=== PATIENT | male | born 1980 | race Hispanic/Latino ===

== ENCOUNTER 2017-10-23 23:30 | Emergency (ER) | payer SELFPAY ==
[2017-10-24 00:10] LABS: #Basophils 0.1 thou/uL (0.0-0.2); #Eosinphils 0.2 thou/uL (0.0-0.7); #Lymphocytes 3.1 thou/uL (1.20-3.40); #Monocytes 0.6 thou/uL (0.11-0.59); #Neutrophils 5.5 thou/uL (1.40-6.50); %Basophils 0.6 % (0.0-1.0); %Eosinophils 2.2 % (0.0-10.0); %Lymphocytes 32.3 % (21.0-51.0); %Monocytes 6.7 % (0.0-10.0); %Neutrophils 58.2 % (42.0-75.0); Mean Corpuscular HGB CONC 35.8 g/dL (32.0-36.0); Mean Corpuscular Hemoglobin 30.7 pg (27.0-31.0); Mean Corpuscular Volume 85.7 fL (78.0-98.0); Mean Platelet Volume 7.7 fL (7.4-10.4); Platelet Count 271 thou/uL (130-400); RBC Distribution Width 11.9 % (11.5-14.5); Red Blood Cell (RBC) Count 4.57 mill/uL (4.70-6.10); White Blood Cell (WBC) Count 9.4 thou/uL (4.8-10.8)
[2017-10-24 00:28] LABS: Anion Gap 11 mmol/L (10-20); BUN (Urea Nitrogen) 18 mg/dL (8.9-20.6); Calc. Creatinine Clearance 0 mL/min (70-130); Calcium 9.4 mg/dL (7.8-10.44); Carbon Dioxide 25 mmol/L (22-29); Chloride 102 mmol/L (98-107); Estimated GFR-MDRD 59; Glucose 215 mg/dL (70-105); Potassium 3.3 mmol/L (3.5-5.1); Sodium 135 mmol/L (136-145)
[2017-10-24 00:41] LABS: CKMB 1.2 ng/mL (0-6.6); Troponin I Less than 0.010 ng/mL (< 0.028)
[2017-10-24] MEDS ORDERED: Hydrochlorothiazide 25 MG TAB PO SCH (01:30)
--- NOTE | 2017-10-26 15:50 | EKG ---
Test Reason : LAMONTE B/P Blood Pressure : / mmHG Vent. Rate : 087 BPM Atrial Rate : 087 BPM P-R Int : 172 ms QRS Dur : 088 ms QT Int : 378 ms P-R-T Axes : 027 004 032 degrees QTc Int : 454 ms Normal sinus rhythm Possible Left atrial enlargement Nonspecific T wave abnormality Abnormal ECG No ST changes No T wave inversions Confirmed by GARRETT SHAY, JENNIFER ([id number]), online editor LOVE OROSCO ([id number]) on 10/26/2017 3:50:20 PM Referred By: Confirmed By:JENNIFER TUCKER MD
== END 2017-10-24 01:55 | disposition home or self-care (01) ==
LOC: ERS 23:30
DX: I16.0 Hypertensive urgency (principal); E78.00 Pure hypercholesterolemia, unspecified; E11.9 Type 2 diabetes mellitus without complications; Z79.899 Other long term (current) drug therapy
CPT/HCPCS: 80048; 82553; 84484; 85025; 93005; 94760

== ENCOUNTER 2018-02-27 15:28 | Emergency (ER) | payer SELFPAY ==
[2018-02-27 16:02] LABS: #Eosinphils 0.2 thou/uL (0.0-0.7); #Lymphocytes 2.2 thou/uL (1.20-3.40); #Monocytes 0.6 thou/uL (0.11-0.59); #Neutrophils 5.9 thou/uL (1.40-6.50); %Basophils 0.5 % (0.0-1.0); %Eosinophils 1.7 % (0.0-10.0); %Lymphocytes 24.8 % (21.0-51.0); %Monocytes 6.3 % (0.0-10.0); %Neutrophils 66.7 % (42.0-75.0); Hemoglobin 13.9 g/dL (14.0-18.0); Mean Corpuscular HGB CONC 35.3 g/dL (32.0-36.0); Mean Corpuscular Hemoglobin 30.5 pg (27.0-31.0); Mean Corpuscular Volume 86.6 fL (78.0-98.0); Mean Platelet Volume 7.8 fL (7.4-10.4); Platelet Count 314 thou/uL (130-400); RBC Distribution Width 12.1 % (11.5-14.5); Red Blood Cell (RBC) Count 4.56 mill/uL (4.70-6.10); White Blood Cell (WBC) Count 8.8 thou/uL (4.8-10.8)
[2018-02-27 16:23] LABS: ALT (SGPT) 21 U/L (8-55); AST (SGOT) 17 U/L (5-34); Albumin 4.6 g/dL (3.5-5.0); Alkaline Phosphatase 121 U/L (40-150); Anion Gap 9 mmol/L (10-20); BUN (Urea Nitrogen) 19 mg/dL (8.9-20.6); Bilirubin, Total 0.9 mg/dL (0.2-1.2); CK (CPK) 115 U/L (30-200); Calc. Creatinine Clearance 0 mL/min (70-130); Calcium 9.4 mg/dL (7.8-10.44); Carbon Dioxide 29 mmol/L (22-29); Chloride 101 mmol/L (98-107); Estimated GFR-MDRD 59; Globulin 3.6 g/dL (2.4-3.5); Glucose 220 mg/dL (70-105); Lipase 38 U/L (8-78); Protein, Total 8.2 g/dL (6.0-8.3); Sodium 135 mmol/L (136-145)
[2018-02-27 16:26] LABS: CKMB 1.7 ng/mL (0-6.6); Troponin I Less than 0.010 ng/mL (< 0.028)
== END 2018-02-27 17:44 | disposition left against medical advice (07) ==
LOC: ERS 15:28
DX: Z53.21 Procedure and treatment not carried out due to patient leaving prior to being seen by health care provider (principal)
CPT/HCPCS: 36415; 80053; 82550; 82553; 83690; 84484; 85025; 93005

== ENCOUNTER 2018-08-08 20:57 | Inpatient (IN) | payer SELFPAY ==
[2018-08-08] MEDS ORDERED: Heparin 10,000 UNITS/1 ML VIAL ONE ×2 (21:08→22:47)
[2018-08-08] MEDS ORDERED: Nitroglycerin 100MG/250ML BOT 0 ML ONE (21:09)
[2018-08-08 21:17] LABS: #Basophils 0.1 thou/uL (0.0-0.2); #Eosinphils 0.1 thou/uL (0.0-0.7); #Lymphocytes 3.4 thou/uL (1.20-3.40); #Monocytes 0.9 thou/uL (0.11-0.59); #Neutrophils 8.6 thou/uL (1.40-6.50); %Basophils 0.7 % (0.0-1.0); %Eosinophils 0.9 % (0.0-10.0); %Lymphocytes 26.1 % (21.0-51.0); %Monocytes 6.9 % (0.0-10.0); %Neutrophils 65.4 % (42.0-75.0); Hemoglobin 13.6 g/dL (14.0-18.0); Mean Corpuscular HGB CONC 35.8 g/dL (32.0-36.0); Mean Corpuscular Hemoglobin 30.9 pg (27.0-31.0); Mean Corpuscular Volume 86.5 fL (78.0-98.0); Mean Platelet Volume 9.8 fL (7.4-10.4); Platelet Count 276 thou/uL (130-400); RBC Distribution Width 12.2 % (11.5-14.5); Red Blood Cell (RBC) Count 4.41 mill/uL (4.70-6.10); White Blood Cell (WBC) Count 13.1 thou/uL (4.8-10.8)
--- NOTE | 2018-08-08 21:17 | RAD ---
AP VIEW CHEST: 08/08/18 HISTORY: Chest pain. AP view chest obtained on 08/08/18. The AP view chest demonstrates EKG leads seen over the chest. The lungs are well aerated. No evidence of active intrathoracic disease seen. No evidence of effusions, pneumonia, or pneumothorax seen. IMPRESSION: Unremarkable AP view chest. POS: [facility]
[2018-08-08 21:42] LABS: ALT (SGPT) 27 U/L (8-55); AST (SGOT) 50 U/L (5-34); Albumin 4.4 g/dL (3.5-5.0); Alkaline Phosphatase 137 U/L (40-150); Anion Gap 19 mmol/L (10-20); BUN (Urea Nitrogen) 33 mg/dL (8.9-20.6); CK (CPK) 552 U/L (30-200); Calc. Creatinine Clearance 0 mL/min (70-130); Calcium 9.5 mg/dL (7.8-10.44); Carbon Dioxide 24 mmol/L (22-29); Chloride 93 mmol/L (98-107); Estimated GFR-MDRD 30; Globulin 3.7 g/dL (2.4-3.5); Glucose 456 mg/dL (70-105); Hemoglobin A1c 10.8 % (4.0-6.0); Potassium 3.5 mmol/L (3.5-5.1); Protein, Total 8.1 g/dL (6.0-8.3); Sodium 132 mmol/L (136-145)
[2018-08-08] MEDS ORDERED: Clopidogrel Bisulfate 300 MG TAB ONE (21:47)
[2018-08-08] MEDS ORDERED: hydrALAZINE 20 MG/ML VIAL ONE (21:50)
[2018-08-08] MEDS ORDERED: Metoprolol Tartrate 5 MG/5 ML VIAL ONE (21:51)
[2018-08-08 22:18] LABS: CKMB 18.7 ng/mL (0-6.6)
[2018-08-08] MEDS ORDERED: Nitroglycerin 0.4 MG TAB (25 Tab Bottle) SL PRN (22:39)
[2018-08-08] MEDS ORDERED: Morphine 4 MG/ML VIAL SLOW IVP PRN (22:39)
[2018-08-08] MEDS ORDERED: Milk Of Magnesia 30 ML UDCUP PO PRN (22:39)
[2018-08-08] MEDS ORDERED: Sodium Chloride 0.9% 1,000 ML IV SCH (22:45)
[2018-08-08 23:48] LABS: Anion Gap 16 mmol/L (10-20); BUN (Urea Nitrogen) 31 mg/dL (8.9-20.6); Calc. Creatinine Clearance 73 mL/min (70-130); Calcium 9.2 mg/dL (7.8-10.44); Carbon Dioxide 21 mmol/L (22-29); Chloride 97 mmol/L (98-107); Estimated GFR-MDRD 41; Glucose 403 mg/dL (70-105); Sodium 131 mmol/L (136-145)
[2018-08-08 23:52] LABS: Potassium 2.9 mmol/L (3.5-5.1)
[2018-08-09] MEDS ORDERED: Potassium Chloride 20 MEQ TAB PO SCH ×2 (00:15→10:45)
--- NOTE | 2018-08-09 02:37 | HP ---
HISTORY OF PRESENT ILLNESS: Mr. Ashok Castro is a 38-year-old Latin-Pak[place] male who denies any previous cardiac problems. He does have history of hypertension and takes medications for this. He states in the past he was told he had diabetes and hypercholesterolemia, but states he lost weight and was told he no longer need to take medications for diabetes or cholesterol. [facility]. Before noon, (presented here at 9 p.m.) he started to have throat tightness as well as some shortness of breath and cough. He thought that he was getting a cold and [facility]. He was found to have EKG changes and was transferred here for further care. PAST MEDICAL HISTORY: Hypertension. He also in the past had diabetes and hypercholesterolemia, but is no longer taking medications for those. MEDICATIONS: Losartan/hydrochlorothiazide. ALLERGIES: HE MAY HAVE HAD LIP SWELLING WITH ASPIRIN IN THE PAST, ALTHOUGH HE RECEIVED 324 MG AT THE [facility] AND HAS HAD NO REACTION. OPERATIONS: None. SOCIAL HISTORY: He smoked less than 1 pack per week, but stopped 1 year ago. He does not drink alcohol. FAMILY HISTORY: Negative for coronary artery disease. REVIEW OF SYSTEMS: A 10-point review of systems unremarkable. PHYSICAL EXAMINATION: VITAL SIGNS: Blood pressure 110/70, pulse of 117 per minute, sinus rhythm. HEENT: PERRL. NECK: Supple. CHEST: Clear. CARDIAC: S1 and S2 normal without any S3, S4, or murmurs. ABDOMEN: Obese, normal bowel sounds. No tenderness or organomegaly. EXTREMITIES: Revealed no clubbing, cyanosis, or edema. NEUROLOGIC: Grossly intact. LABORATORY DATA: EKG at the [facility] revealed [address]-segment elevation in III and F along with [address]-segment depression in V2 through V3. [facility] EKG in transit was similar. However, there was more ST-segment depression of 1 mm in V2 through V5. EKG on arrival here revealed sinus tachycardia with [address]-elevation in III,and F along with 1-[address] segment depression in V2 through V4. LABORATORY DATA: Hemoglobin 13.6, hematocrit 38.2, white count 21030, platelets 276,000. Reportedly, his glucose was around 500 and creatinine was over 2. However, that has not resulted in the computer as of yet. IMPRESSION: 1. Inferoposterior ST elevation myocardial infarction. 2. Hypertension. 3. Diabetes. 4. Hypercholesterolemia. 5. Former smoker. 6. Obesity. PLAN: Situation discussed with the patient. It is recommended that he undergo emergent catheterization. Risks of this were discussed with the patient including , myocardial infarction, dye reaction, vascular injury, CVA, transfusion, limb loss, renal loss, etc. Also risk of intervention with stent placement discussed including , myocardial infarction, emergent CABG, restenosis, stent thrombosis, vessel perforation, etc. He agrees to proceed. Job ID: [id number] AMALIA
[2018-08-09 03:50] LABS: #Lymphocytes 2.2 thou/uL (1.20-3.40); #Monocytes 0.9 thou/uL (0.11-0.59); #Neutrophils 9.8 thou/uL (1.40-6.50); %Basophils 0.2 % (0.0-1.0); %Eosinophils 0.3 % (0.0-10.0); %Lymphocytes 16.7 % (21.0-51.0); %Monocytes 6.7 % (0.0-10.0); %Neutrophils 76.2 % (42.0-75.0); Hemoglobin 12.5 g/dL (14.0-18.0); Mean Corpuscular HGB CONC 36.7 g/dL (32.0-36.0); Mean Corpuscular Hemoglobin 31.5 pg (27.0-31.0); Mean Corpuscular Volume 85.7 fL (78.0-98.0); Mean Platelet Volume 8.9 fL (7.4-10.4); Platelet Count 227 thou/uL (130-400); Red Blood Cell (RBC) Count 3.98 mill/uL (4.70-6.10); White Blood Cell (WBC) Count 12.9 thou/uL (4.8-10.8)
[2018-08-09 03:59] LABS: ALT (SGPT) 24 U/L (8-55); AST (SGOT) 63 U/L (5-34); Alkaline Phosphatase 121 U/L (40-150); Anion Gap 14 mmol/L (10-20); BUN (Urea Nitrogen) 29 mg/dL (8.9-20.6); Calc. Creatinine Clearance 82 mL/min (70-130); Calcium 9.1 mg/dL (7.8-10.44); Carbon Dioxide 24 mmol/L (22-29); Cardiac Risk 4.5 (Less than 4.5); Chloride 99 mmol/L (98-107); Cholesterol 152 mg/dl (< 200 Desired); Estimated GFR-MDRD 46; Globulin 3.2 g/dL (2.4-3.5); Glucose 328 mg/dL (70-105); HDL Cholesterol 34 mg/dL (>60 Neg Risk); LDL Cholesterol, Calculated 49 mg/dL; Potassium 3.4 mmol/L (3.5-5.1); Protein, Total 7.2 g/dL (6.0-8.3); Sodium 134 mmol/L (136-145); Triglycerides 346 mg/dL (Less than 150)
[2018-08-09 04:22] LABS: Troponin I 70.592 ng/mL (< 0.028)
[2018-08-09] MEDS: Sodium Chloride 0.9% 1,000 ML IV SCH (06:04)
[2018-08-09 06:22] VITALS: BMI 36.1
[2018-08-09] MEDS: Clopidogrel Bisulfate 75 MG TAB PO SCH (08:30)
[2018-08-09] MEDS: Aspirin Chewable 81 MG TAB PO SCH (08:30)
[2018-08-09] MEDS: Carvedilol 3.125 MG TAB PO SCH ×2 (08:30→17:52)
[2018-08-09] MEDS ORDERED: Dextrose 50% Abboject 50 ML SYRINGE SLOW IVP PRN (09:10)
[2018-08-09] MEDS ORDERED: Dextrose 5% in Water 1,000 ML IV PRN (09:10)
[2018-08-09] MEDS ORDERED: Insulin Regular 300 UNITS/3 ML VIAL IVP SCH (09:15)
[2018-08-09] MEDS ORDERED: Insulin Glargine 10 UNITS in Pre-Filled Syringe 1 EACH SC SCH (09:30)
[2018-08-09] MEDS ORDERED: Sodium Chloride 0.9% 500 ML IV SCH (10:00)
[2018-08-09 10:28] LABS: Critical Call Chem Troponin I RESULT DECREASING; Troponin I 29.442 ng/mL (< 0.028)
[2018-08-09] MEDS: Insulin Regular 300 UNITS/3 ML VIAL SC PRN ×3 (12:13→20:08)
--- NOTE | 2018-08-09 13:41 | OP ---
DATE OF PROCEDURE: 08/08/18 SURGEON: Alvaro Mujica M.D. INDICATIONS: Inferoposterior STEMI. PROCEDURE: 1. Coronary arteriography. 2. Stent placement in the right coronary artery. The patient is brought from the Emergency Room and the right groin was prepped and draped in the usual manner. 1% lidocaine was infiltrated and a 6 [place] sheath was inserted into the right femoral artery. The patient was given 5000 units of heparin and later again this was repeated. ACT was obtained and it was greater than 300. 6 [place] Judkin's left 4 followed by 6 [place] Judkin's right 4 was used for coronary arteriography. 6 [place] right 4 guide catheter was inserted. Floppy choice wire was inserted but would not cross the totally occluded mid right coronary artery. This was removed and a Mailman wire was inserted. With significant amount of manipulation, this was able to cross the totally occluded vessel. This went all the way up to the mid RCA was predilated with Emerge 2.0 x 20 mm balloon. Rebel 2.25 x 24 mm stent was then inserted into the distal right coronary artery. Overlapping this, Rebel 2.5 x 28 and overlapping this a 3.0 x 28 mm stent were placed from the distal to the proximal right coronary artery. Final result was excellent. The sheaths were sutured in place. The patient was transferred to the CCU. RESULTS: CORONARY ARTERIOGRAPHY: 1. Left main was normal. 2. The LAD had 60% mid stenosis. There was an 80% stenosis of a large high diagonal. Another diagonal had 70% stenosis. 3. The circumflex had a 95% mid stenosis. The first obtuse marginal had a 90 followed by 90% stenosis. 4. The right coronary artery was totally occluded. INTERVENTION RESULTS: The initial right coronary artery mid lesion was 100%, final lesion was 0%. IMPRESSION: 1. Three vessel coronary artery disease. 2. Successful bare metal stent placed in the proximal to distal right coronary artery. AMALIA
[2018-08-09 15:23] LABS: Anion Gap 12 mmol/L (10-20); BUN (Urea Nitrogen) 24 mg/dL (8.9-20.6); Calc. Creatinine Clearance 101 mL/min (70-130); Calcium 8.7 mg/dL (7.8-10.44); Carbon Dioxide 26 mmol/L (22-29); Chloride 99 mmol/L (98-107); Estimated GFR-MDRD 54; Glucose 261 mg/dL (70-105); Magnesium 1.8 mg/dL (1.6-2.6); Potassium 3.8 mmol/L (3.5-5.1); Sodium 133 mmol/L (136-145)
--- NOTE | 2018-08-09 16:48 | HP ---
PRIMARY CARE PHYSICIAN: Juan Morillo DO CHIEF COMPLAINT: Chest pain and shortness of breath. HISTORY OF PRESENT ILLNESS: The patient had worsening chest pain and shortness of breath, was transported by EMS from the [facility] to [facility] en route [facility] was evaluated. The patient underwent cardiac catheterization by Dr. Alvaro Mujica with reported three times stenting. The patient has been a noncompliant diabetic with poorly controlled hypertension. There is no show to Dr. Morillo multiple times on review of outpatient records and is not taking his prescribed diabetic medications, stating they do not make him feel well. On admission, his blood sugar was over 450, uncontrolled triglycerides for which the patient is prescribed Lovaza on an outpatient basis, however states the only medication he is taking is losartan-hydrochlorothiazide. The patient states he eats [place] food regularly, sweet and sour chicken with rice eats two breakfast Tacos with tortillas in the morning for breakfast every day. He is not counting carbs. On view of past medical, social, surgical history, hypertension, gout, diabetes type 2, noncompliant, uncontrolled diabetic neuropathy, erectile dysfunction, hypertriglyceridemia, smoker, tobacco abuse. FAMILY HISTORY: Father with hypertension and mother with hyperlipidemia, hypertension, and diabetes. ALLERGIES: REPORTED TO BE ALEVE, EYELID SWELLING. PAST SURGICAL HISTORY: No prior surgeries listed other than stents as per the hospital admission. HOME MEDICATIONS: Should include: 1. Allopurinol 300 mg. 2. Sildenafil 100 mg. 3. Indomethacin 50 mg. 4. Lovaza 1 g two capsules twice a day. 5. Hydralazine 25 mg t.i.d. p.r.n., systolic blood pressure 150. 6. Losartan-hydrochlorothiazide 100/25, once daily. 7. Glyburide-metformin 5/500, one-half tab twice a day. Again, the patient states he is noncompliant with all medications except for losartan-hydrochlorothiazide. LABORATORY DATA: The patient with normocytic anemia. Hemoglobin of 12.5, white blood cell count of 12.9, neutrophil percent of 76. Postoperatively, potassium improved from 2.9 to 3.4 overnight. Sodium of 134. Creatinine improved from 2.44 on admission to 1.66. Blood glucose improved from 456 to 328 with IV fluids alone. AST of 63, ALT of 24, alkaline phosphatase of 121. Troponins on arrival 28.5, repeat of 70.5. The patient has already undergone cardiac catheterization, triglycerides of 346, albumin 4.0, total cholesterol of 152, HDL of 34, LDL of 49 calculated. A1c was not performed on morning labs. Chest x-ray without acute cardiopulmonary events. Review of slab installer report, 3-vessel disease found in mid left anterior descending, 60% stenosis, first and second diagonal on left anterior descending, 80% and 70% stenosis respectively. First oblique margin 90% stenosis, right circumflex artery 100% stenosis. REVIEW OF SYSTEMS: Denies any fevers or chills. Denies any cough or chest pain. Denies any shortness of breath postoperatively. Denies any diarrhea or constipation. Denies any rash. Denies any lower extremity edema. Denies any fevers or chills. States that he is hungry. PHYSICAL EXAMINATION: VITAL SIGNS: Review of vital signs on arrival to floor, heart rate of 106, blood pressure 132/92, respiratory rate 18, and oxygen saturation 97% on room air. GENERAL: The patient is alert and oriented, in no acute distress. HEENT: Head is normocephalic and atraumatic. Extraocular movements are intact. Sclerae are white, noninjected. Oral mucosa is moist. NECK: Supple, nontender. HEART: Tachycardic, but regular rate. LUNGS: Clear to auscultation bilaterally. ABDOMEN: Soft, nontender. Positive bowel sounds throughout lower extremities without cyanosis or edema. Dorsalis pedis pulses are 2+ bilaterally. The patient is alert and oriented x3. No focal deficits. Speech is normal. ASSESSMENT AND PLAN: ST-depression myocardial infarction status post cardiac stent x3, hyperlipidemia, specifically triglycerides, diabetes type 2 uncontrolled, acute kidney injury, hypokalemia, hypertension, normocytic anemia, noncompliant behavior. Bolusing patient for his acute kidney injury and hyperglycemia with 500 mL of normal saline. Recommend continue 50 mL/h of normal saline until acute kidney injury is resolved. If okay with Cardiology, would be fine with ADA 1700 calorie per day diet. The patient remains in ICU following cardiac catheterization. Has been initiated on aspirin, Coreg, Plavix. Agreement with these. Once patient's blood pressure is stabilized, would recommend return to losartan if possible with holding of metformin or other oral diabetic agents that are renal sensitive until the patient's creatinine improves. We will initiate insulin therapy to bring the patient's glucose down to a goal of 120 to 140, sliding scale insulin with before meals and at bedtime, Accu-Cheks. Initial IV of regular 10 units and Lantus subcu 10 units with repeat check in p.m. for potassium and concomitant check of magnesium. The patient was started on oral potassium replacement 40 mEq early this morning and magnesium supplementation of 30 mL b.i.d. p.r.n. Replace electrolytes as needed. Follow up on 24-hour insulin requirement with transition to oral regimen when able. Per protocol, the patient should be visited by healthcare educator. Remainder of management deferred to Cardiology regarding postoperative care from stenting. Thank you very much. Job ID: [id number]
[2018-08-09] MEDS: Atorvastatin Calcium 10 MG TAB PO SCH (20:08)
[2018-08-10] MEDS: Sodium Chloride 0.9% 1,000 ML IV SCH ×2 (00:05→22:23)
[2018-08-10 05:12] LABS: Hemoglobin A1c 10.5 % (4.0-6.0)
[2018-08-10 05:16] LABS: Anion Gap 11 mmol/L (10-20); BUN (Urea Nitrogen) 19 mg/dL (8.9-20.6); Calc. Creatinine Clearance 131 mL/min (70-130); Calcium 8.8 mg/dL (7.8-10.44); Carbon Dioxide 24 mmol/L (22-29); Chloride 103 mmol/L (98-107); Estimated GFR-MDRD 73; Glucose 167 mg/dL (70-105); Potassium 3.4 mmol/L (3.5-5.1); Sodium 135 mmol/L (136-145)
[2018-08-10] MEDS: Insulin Regular 300 UNITS/3 ML VIAL SC PRN ×3 (05:46→12:04)
[2018-08-10] MEDS ORDERED: Potassium Chloride 20 MEQ TAB PO SCH (06:45)
[2018-08-10] MEDS: metFORMIN XR 500 MG TAB PO SCH (08:48)
[2018-08-10] MEDS: Aspirin Chewable 81 MG TAB PO SCH (08:48)
[2018-08-10] MEDS: Carvedilol 3.125 MG TAB PO SCH ×2 (08:48→17:34)
[2018-08-10] MEDS: Clopidogrel Bisulfate 75 MG TAB PO SCH (08:48)
[2018-08-10] MEDS: Insulin Glargine 10 UNITS in Pre-Filled Syringe 1 EACH SC SCH (08:49)
--- NOTE | 2018-08-10 21:28 | PRG ---
DATE OF SERVICE: 08/10/2018 HISTORY OF PRESENT ILLNESS: The patient was transferred from ICU to floor status today and has been doing well with sliding scale insulin and Lantus and initiated on metformin. Particularly he does have some difficulty with diarrhea on initiation of metformin, but they have been tolerable. In the past, he takes metformin and sulfonylurea combination pill on an outpatient basis. Recently, he is interested in a ketogenic diet upon discharge. He has no acute complaints. States he is feeling good and wants to go home. Mother at bedside this evening. Temperature of 98.8 , pulse of 92, respiratory rate of 18, oxygen saturation 99% on room air, blood pressure 118/77. Creatinine trending down to 1.12. Potassium of 3.4, which was replaced this morning with repeat in a.m. A1c of 10.5. Glucose is 167 to 233 in the last 16 hours. PHYSICAL EXAMINATION: GENERAL: The patient is alert, oriented, in no acute distress. HEENT: Normocephalic and atraumatic. Extraocular movements are intact. Sclerae are white. Oral mucosa is moist. NECK: Supple. HEART: Regular rate and rhythm at the time of the exam. No murmurs auscultated. LUNGS: Clear to auscultation bilaterally. No rubs or wheezes. ABDOMEN: Soft and nontender with positive bowel sounds throughout. Protuberant. EXTREMITIES: Lower extremities without cyanosis or edema. Dorsalis pedis pulses are intact bilaterally. NEUROLOGIC: The patient is alert and oriented x3. No focal deficits. Speech is normal. ASSESSMENT AND PLAN: Coronary artery disease, status post 3 stents, 3-vessel disease; diabetes type 2, uncontrolled, restarting the patient on prior medication regimen, metformin and sulfonylurea. The patient's cardiac medication is being titrated by Dr. Mujica. We will defer further blood pressure management, statin, URBANO inhibitor, ARB, beta-avery, Plavix, aspirin, etc. This last 16 hours, the patient required 8 units of sliding scale insulin on top of Lantus 10 units; 16 hours prior to that where he took 16 units. We will add sulfonylurea for tomorrow morning. Checking out to Dr. Juan Morillo, the patient's PCP, to follow up on discharge. Follow up on echocardiogram results. Potential CABG needed based on results. Dr. Mujica has consulted Gabino Mckeon to take a look. Job ID: [id number] MTDD
[2018-08-10] MEDS: Atorvastatin Calcium 10 MG TAB PO SCH (22:24)
[2018-08-11 05:28] LABS: Anion Gap 13 mmol/L (10-20); BUN (Urea Nitrogen) 19 mg/dL (8.9-20.6); Calc. Creatinine Clearance 122 mL/min (70-130); Calcium 9.1 mg/dL (7.8-10.44); Carbon Dioxide 22 mmol/L (22-29); Chloride 104 mmol/L (98-107); Estimated GFR-MDRD 70; Glucose 169 mg/dL (70-105); Potassium 3.3 mmol/L (3.5-5.1); Sodium 136 mmol/L (136-145)
[2018-08-11] MEDS: Clopidogrel Bisulfate 75 MG TAB PO SCH (08:48)
[2018-08-11] MEDS: metFORMIN XR 500 MG TAB PO SCH (08:48)
[2018-08-11] MEDS: Insulin Glargine 10 UNITS in Pre-Filled Syringe 1 EACH SC SCH (08:48)
[2018-08-11] MEDS: Aspirin Chewable 81 MG TAB PO SCH (08:48)
[2018-08-11] MEDS: Carvedilol 3.125 MG TAB PO SCH ×2 (08:48→16:39)
--- NOTE | 2018-08-11 09:31 | PRG ---
DATE OF SERVICE: 08/11/2018 SUBJECTIVE: The patient is feeling well. He denies chest pain. Denies shortness of breath. No nausea or vomiting. He continues to have a dry cough. No fevers or chills. Tolerating diet okay. He is anxious about possible procedure. OBJECTIVE: VITAL SIGNS: Temperature 98.3, pulse of 83, respirations 20, blood pressure 123/77, pulse ox is 96% on room air. GENERAL: He is awake and alert, in no acute distress. Speech is clear. NECK: Supple. HEART: Regular rate and rhythm. LUNGS: Clear bilaterally. ABDOMEN: Soft. EXTREMITIES: With no edema. LABORATORY DATA: Sodium 136, potassium 3.3, chloride 104, CO2 of 22, BUN and creatinine 19 and 1.16 with a GFR of 70. Accu-Cheks 179, 169, 211. Echocardiogram is pending. ASSESSMENT/PLAN: This is a 38-year-old gentleman with uncontrolled diabetes, hypertension, hyperlipidemia, now status post infero-posterior ST-elevation MD, status post angioplasty with stent placement for three-vessel coronary artery disease. 1. ST-elevation MD. Continue plan per Cardiology. 2. Coronary artery disease, status post bare metal stent placement. Awaiting cardiovascular surgery evaluation for possible bypass surgery. 3. Type 2 diabetes, much better controlled when he is taking his medications and diet control. I will continue metformin and glipizide as well as insulin sliding scale. Await certified breastfeeding educator. 4. Mixed hyperlipidemia. I will continue Lipitor at this point. Job ID: [id number]
[2018-08-11] MEDS: Potassium Chloride 20 MEQ TAB PO SCH (10:32)
[2018-08-11] MEDS: Atorvastatin Calcium 10 MG TAB PO SCH (20:42)
--- NOTE | 2018-08-12 02:04 | CON ---
DATE OF CONSULTATION: 08/11/2018 PRIMARY CARE PHYSICIAN: Juan Morillo DO. CHIEF COMPLAINT: Sore throat, cough, and muscle aches. HISTORY OF PRESENT ILLNESS: The patient is a 38-year-old poorly-controlled hypertensive diabetic man with minimal smoking history. He felt a vague fullness in his throat, felt like he was getting a sore throat, perhaps a cold. He had some muscle aches in the shoulders and nonproductive cough. He apparently went to an outlying facility and describes having low O2 saturation readings when they tried it several times. It sounds like somewhat empirically because of that, an EKG was checked, which showed significant abnormalities and he was transferred here where he was found to have ST elevations in lead III and ST depression in leads V2, III, and IV. He had an elevated troponin. He was taken to the lab engineer where he was found to have three-vessel disease with what appeared to represent an acutely occluded right coronary. This was opened by PCI utilizing bare metal stents and he has had an uncomplicated post infarction course. PAST MEDICAL HISTORY: Significant for hypertension and diabetes. His past medical history is also significant for gout. MEDICATIONS: There is some question as to whether he has been taking his losartan 100/hydrochlorothiazide 25 one a day. He is also prescribed Lovaza 2 g b.i.d., Indocin 50 mg a day. Allopurinol 300 mg a day and sildenafil. He is currently on a baby aspirin and Plavix 75 mg a day, Lipitor 10 mg at bedtime, Coreg 3.125 mg b.i.d., glipizide 2.5 mg q.a.m., metformin 500 mg q.a.m., glargine insulin 10 units subcu q.a.m., and potassium 20 mEq q.a.m. FAMILY HISTORY: The patient is adopted and is not aware of any health problems in any of his biologic family. REVIEW OF SYSTEMS: Negative for any other illnesses. Negative for any eye, speech, facial, or extremity symptoms consistent with TIAs. Negative for any shortness of breath. Negative for any dependent edema or orthopnea or PND. When his gout flares up, it typically involves his left knee. PHYSICAL EXAMINATION: GENERAL: He is 5 feet 7 inches, weighs 225.25 pounds. VITAL SIGNS: Currently, heart rate is 70, blood pressure 119/87. On admission to the emergency room, his heart rate was 115 and blood pressure 155/97. His room air O2 sats currently are 95%. HEENT: He has no xanthelasma. NECK: No JVD. No carotid bruits. CHEST: Clear to auscultation. He has regular rate and rhythm. ABDOMEN: Soft and nontender. He has easily palpable radial and dorsalis pedis pulses bilaterally. EXTREMITIES: Yan's testing is normal bilaterally (he says that he is right-hand dominant). He has no obvious varicosities. He has no clubbing, cyanosis, or edema. IMAGING STUDIES: Chest x-ray perhaps shows some mild cardiomegaly, otherwise is normal. His EKG is as described above. The following day, he had deep Q-wave in III, as he did on presentation, the ST changes had resolved. He has an upright T-wave in V1. LABORATORY DATA: Showed white count of 13.1, hemoglobin 13.6, hematocrit 38.2, platelets 276,000, hemoglobin A1c was 10.8. On presentation, sodium was 132, otherwise electrolytes were normal. Glucose was 456, BUN 33, creatinine 2.44 with an estimated GFR of 30. Calcium was 9.5, protein 8.1, albumin 4.4, bilirubin 1.0, alkaline phosphatase 137, AST 50, ALT 27. His troponin on presentation was 28.557, at about 3:30 the following morning it was 70.592, at about 10:15 the next morning it was down to 29.442. His glucoses over the ensuing few days came down, but as of this morning, still his blood sugars were running in the 160s to 230s. His BUN and creatinine gradually came down this morning, they were 19 and 1.16 respectively. His cardiac catheterization shows a right-dominant system with a relatively small right coronary system that was stented in 2 places. His left main is normal. He has modest lesion in the mid LAD measuring about 50% to 60%. He has a large high first diagonal that appears to run in a ramus type position that is about a 70% ostial stenosis. There is about a 70% or 80% lesion in a more modest sized second diagonal that comes off at about the level of the first septal founder chairman and chief creative officer. He has a small OM1 that has about an 80% or 90% lesion. Circumflex proper leading out to a bifurcated OM has about a 90% lesion in it. Echocardiography showed an LVEF of about 50% to 55%. IMPRESSION AND RECOMMENDATIONS: Three-vessel coronary artery disease with bare metal stenting of an acutely occluded right coronary artery to abort a myocardial infarction. He has had an uncomplicated post infarction course with resolution of his significantly elevated creatinine and improvement in his blood sugar control. He has residual left-sided coronary artery disease to a significant degree and we will plan on seeing him in the office in roughly a month with anticipation of stopping his Plavix at about that point in time and doing his coronary artery bypass grafting off Plavix a week or 10 days later. Job ID: [id number]
[2018-08-12 07:36] LABS: Anion Gap 13 mmol/L (10-20); BUN (Urea Nitrogen) 15 mg/dL (8.9-20.6); Calc. Creatinine Clearance 141 mL/min (70-130); Calcium 9.7 mg/dL (7.8-10.44); Carbon Dioxide 25 mmol/L (22-29); Chloride 103 mmol/L (98-107); Estimated GFR-MDRD 81; Glucose 92 mg/dL (70-105); Potassium 3.5 mmol/L (3.5-5.1); Sodium 137 mmol/L (136-145)
[2018-08-12] MEDS: Clopidogrel Bisulfate 75 MG TAB PO SCH (08:15)
[2018-08-12] MEDS: Potassium Chloride 20 MEQ TAB PO SCH (08:15)
[2018-08-12] MEDS: Insulin Glargine 10 UNITS in Pre-Filled Syringe 1 EACH SC SCH (08:15)
[2018-08-12] MEDS: metFORMIN XR 500 MG TAB PO SCH (08:15)
[2018-08-12] MEDS: Carvedilol 3.125 MG TAB PO SCH (08:15)
[2018-08-12] MEDS: Aspirin Chewable 81 MG TAB PO SCH (08:15)
[2018-08-12 09:46] VITALS: BP 137/87; TEMP 98.2
--- NOTE | 2018-08-12 16:14 | DIS ---
DATE OF ADMISSION: 08/08/2018 DATE OF DISCHARGE: 08/12/2018 ADMISSION DIAGNOSES: 1. Inferoposterior ST-elevation myocardial infarction. 2. Hypertension. 3. Hyperlipidemia. CONSULTATIONS: Dr. Mujica for Cardiology. Dr. Taylor for Cardiovascular Surgery. PROCEDURES: Left heart catheterization with stent placement x3. DISCHARGE DIAGNOSES: 1. Inferoposterior ST-elevation myocardial infarction. 2. Coronary artery disease. 3. Uncontrolled type 2 diabetes. 4. Hypertension. 5. Hyperlipidemia. 6. Noncompliance. HOSPITAL COURSE: This is a 38-year-old gentleman with a history of diabetes, hypertension, hyperlipidemia, noncompliance, who presented to [facility] Emergency Department with complaints of upper respiratory symptoms. They were suspicious and have to do an EKG, which was abnormal and he was admitted by Dr. Mujica for possible VA. He underwent left heart catheterization by Dr. Mujica and was found to have three-vessel disease. He underwent a bare-metal stent placement and tolerated the procedure well. He remained chest pain free throughout his hospitalization. His sugars were under much better control. Whereon admission, his blood sugars are over 400. He tolerated a diabetic cardiac diet, tolerated medicines. Echocardiogram had showed normal LV function. He was seen by Dr. Taylor prior to discharge, who agreed with the possible need for bypass surgery, but recommended continuing the Plavix for 1 month and then re-evaluate at that time as an outpatient as far as how to proceed from there. The patient was cleared by Cardiology and Cardiovascular Surgery for discharge and the patient was stable for discharge. DISCHARGE PHYSICAL EXAMINATION: VITAL SIGNS: Temperature 98.7, pulse of 92, respirations 16, blood pressure 131/83, and pulse ox is 98% on room air. GENERAL: He is awake and alert. No acute distress. Speech is clear. NECK: Supple. HEART: Regular rate and rhythm. LUNGS: Clear. EXTREMITIES: No edema. DISCHARGE LABS: Reviewed. PRIOR DISCHARGE MEDICATIONS: Include; 1. Aspirin 81 mg daily. 2. Lipitor 10 mg daily. 3. Carvedilol 3.125 mg b.i.d. 4. Plavix 75 mg daily. 5. Glipizide 2.5 mg daily. 6. Metformin 500 mg daily. 7. Losartan/hydrochlorothiazide 100/25 daily. FOLLOWUP INSTRUCTIONS: The patient is to follow up in my office in 1 week, with Dr. Mujica in 1 to 2 weeks, and Dr. Taylor in 1 month. He is to continue his Plavix for 28 days and discontinue, and follow up with Dr. Taylor for further procedure. Job ID: [id number]
== END 2018-08-12 11:35 | disposition home or self-care (01) | DRG 249 ==
LOC: ERS 20:57 → CCL 21:24 → CCU 22:10 → 2NO 08-10 15:37
PROVIDERS: ADMIT Internal Medicine Cardiovascular Disease; ATTEND Internal Medicine Cardiovascular Disease
PROC: 02703FZ Dilation of Coronary Artery, One Artery with Three Intraluminal Devices, Percutaneous Approach (ICD-10-PCS; principal; 2018-08-08)
PROC: B2111ZZ Fluoroscopy of Multiple Coronary Arteries using Low Osmolar Contrast (ICD-10-PCS; 2018-08-08)
DX: I21.11 ST elevation (STEMI) myocardial infarction involving right coronary artery (principal); N17.9 Acute kidney failure, unspecified; I10 Essential (primary) hypertension; M10.9 Gout, unspecified; E78.00 Pure hypercholesterolemia, unspecified; E11.40 Type 2 diabetes mellitus with diabetic neuropathy, unspecified; E66.9 Obesity, unspecified; N52.9 Male erectile dysfunction, unspecified; E87.6 Hypokalemia; D64.9 Anemia, unspecified; E11.65 Type 2 diabetes mellitus with hyperglycemia; I25.10 Atherosclerotic heart disease of native coronary artery without angina pectoris; Z91.14 Patient's other noncompliance with medication regimen; Z88.8 Allergy status to other drugs, medicaments and biological substances; Z87.891 Personal history of nicotine dependence; Z68.35 Body mass index [BMI] 35.0-35.9, adult; Z79.899 Other long term (current) drug therapy
CPT/HCPCS: 36415; 36416; 71045; 80048; 80053; 80061; 82550; 82553; 83036; 83735; 84484; 85025; 85347; 92928; 93005; 93010; 93306; 93454; 93798; C1725; C1769; C1876; C1887; J0360; J1644; J1815; J1825